=== PATIENT | male | born 1970 | race Caucasian/White ===

== ENCOUNTER 2024-12-03 08:52 | Emergency (ER) | payer BC ==
[2024-12-03 09:54] LABS: BASOPHILS PERCENT AUTO 1.6 % (0.0-1.0); EOSINOPHILS PERCENT AUTO 1.8 % (1.0-3.0); HEMATOCRIT 39.6 % (40.0-54.0); HEMOGLOBIN 13.5 g/dL (14.0-18.0); LYMPHOCYTES PERCENT AUTO 19.5 % (20.5-50.1); MEAN CORPUSCULAR HEMOGLOBIN 34.9 pg (27.0-34.0); MEAN CORPUSCULAR HGB CONC 34.1 g/dL (33.0-35.0); MEAN CORPUSCULAR VOLUME 102.3 fL (80-100); MONOCYTES PERCENT AUTO 11.7 % (2-8); NEUTROPHILS PERCENT AUTO 65.4 % (42.2-75.2); PLATELET COUNT,PLT 259 10^3/uL (150-450); RED BLOOD CELL COUNT 3.87 10^6/uL (4.6-6.2); WHITE BLOOD CELL COUNT,WBC 10.1 10^3/uL (5.0-10.0)
[2024-12-03] MEDS: Potassium Chloride 10 MEQ Tab.ER PO ONE (10:15)
[2024-12-03] MEDS: Magnesium Oxide 400 MG Tab PO ONE (10:15)
[2024-12-03] MEDS: Potassium Chloride 20 MEQ in Premix Bag 1 BAG IV ONE (10:16)
[2024-12-03 10:18] LABS: ALBUMIN 2.6 g/dL (3.4-5.0); ANION GAP 13.5 mEq/L (7-13); BILIRUBIN TOTAL 3.5 mg/dL (0.2-1.0); BUN/CREATININE RATIO 5.5 (No establ ref range); CALCIUM 8.4 mg/dL (8.5-10.1); CREATININE 0.55 mg/dL (0.70-1.30); EST CRCL DRUG DOSING (CG) 169.23 mL/min; MAGNESIUM 1.3 mg/dL (1.8-2.4); POTASSIUM,K 2.5 mmol/L (3.5-5.1); PROTEIN TOTAL,TP 6.4 g/dL (6.4-8.2)
[2024-12-03 10:19] LABS: A/G RATIO 0.68
[2024-12-03] MEDS: Magnesium Sulf/Wat 2 GM/50 mL 2 GM in Premix Bag 1 BAG IV ONE (10:46)
[2024-12-03] MEDS: Calcium Carbonate 500 MG Tab.Chew PO ONE (10:58)
== END 2024-12-03 12:55 | disposition home or self-care (01) ==
LOC: DL.ED 08:52
DX: E87.6 Hypokalemia (principal)
CPT/HCPCS: 36415; 80053; 83735; 85025; 93005; 96365; 96366; 96368; 99285; A9270; J3475; J3480